=== PATIENT | female | born 1985 ===

== ENCOUNTER → 2017-08-17 | Outpatient (CLI) | payer OTHER ==
[~2017-08-17] MED LIST: ALLEGRA ALLERG180 MG PO; GILTUSS TR TAB1 EACH PO; LEVAQUIN500 MG PO; PIROXICAM
== END | disposition home or self-care (01) ==
LOC: PPHC 09:09
DX: R21 Rash and other nonspecific skin eruption (principal)

== ENCOUNTER 2023-06-09 15:30 | Outpatient (CLI) | payer OTHER | END 2023-06-09 16:52 | disposition home or self-care (01) | LOC: NST 15:30 | PROVIDERS: ATTEND Obstetrics & Gynecology Gynecology | DX: Z34.83 Encounter for supervision of other normal pregnancy, third trimester (principal) ==

== ENCOUNTER 2023-06-14 12:45 | Inpatient (IN) | payer OTHER ==
[~2023-06-14] VITALS: Ht 157.5 cm; Wt 69.9 kg
[2023-06-20] MEDS ORDERED: MAGNESIUM SULFATE IN WATER 0.04 GM/ML IV.SOLN IV ONE (18:02)
[2023-06-20 19:03] LABS: HEMATOCRIT 38.1 % (36.0-45.00); HEMOGLOBIN 13.2 g/dL (12.0-15.00); MEAN CELL VOLUME 89.4 fL (80.00-100.00); MEAN CORPUSCULAR HGB CONC 34.7 g/dl (32.0-36.0); PLATELET COUNT 281 K/uL (150-450); RED BLOOD COUNT 4.26 M/uL (4.00-6.00); RED CELL DISTRIBUTION WIDTH 13.6 % (11.5-14.5)
[2023-06-20 19:06] LABS: PH,URINE 5.5 (5.0-8.0); URINE APPEARANCE Clear; URINE BILIRRUBIN Negative (NEGATIVE); URINE BLOOD Negative; URINE COLOR Yellow; URINE GLUCOSE Negative (NEGATIVE); URINE LEUKOCYTE Negative; URINE NITRATE Negative; URINE PROTEIN Negative (NEGATIVE); URINE UROBILINOGEN 0.2 E.U./dl
[2023-06-20 19:07] LABS: URINE BACTERIA 844.1 uL (0.0-1933); URINE EPITHELIAL CELLS 8.3 uL (0.0-38.8); URINE RBC 6.8 uL (0.0-20.8); URINE WBC 10.9 uL (0.0-23.2)
[2023-06-20] MEDS ORDERED: MAGNESIUM SULFATE IN WATER 500 ML IV SCH (19:15)
[2023-06-20] MEDS ORDERED: ACETAMINOPHEN 500 MG GEL..CAP PO PRN (19:15)
[2023-06-20 19:33] LABS: ALBUMIN 2.8 gm/dL (3.4-5.0); BILIRUBIN TOTAL 0.28 mg/dL (0.3-1.2); CALCIUM 8.8 mg/dL (8.5-10.1); CREATININE SERUM 0.63 mg/dL (0.55-1.02); GFR 105.2; GLOBULINA 3.3 G/DL (2.4-3.5); POTASSIUM 3.75 mEq/L (3.5-5.1); TOTAL PROTEIN 6.1 gm/dL (6.4-8.2)
[2023-06-20 19:49] LABS: INR < 0.93; PARTIAL THROMBOPLASTIN TIME 24.5 SECONDS (22.0-34.0); PROTHROMBIN TIME 9.7 SECONDS (9.0-11.5)
[2023-06-20] MEDS ORDERED: ACYCLOVIR 400 MG TABLET PO SCH (21:00)
[2023-06-20] MEDS ORDERED: FAMOTIDINE/PF 20 MG/2 ML VIAL IV SCH (21:00)
[2023-06-21] MEDS ORDERED: OXYTOCIN 500 ML IV ONE (11:00)
[2023-06-21] MEDS ORDERED: OXYTOCIN 10 UNITS/ML VIAL ONE (11:02)
[2023-06-21] MEDS ORDERED: MISOPROSTOL 25 MCG TABLET VAG ONE ×2 (15:00)
[2023-06-22] MEDS ORDERED: OXYTOCIN 500 ML IV ONE (05:45)
[2023-06-22] MEDS ORDERED: OXYTOCIN 1,000 ML IV ONE ×2 (05:45→14:30)
[2023-06-22] MEDS ORDERED: MORPHINE SULFATE 4 MG/ML VIAL IV STA (08:27)
[2023-06-22] MEDS ORDERED: PRENATABS RX T1 EACH PO (10:29)
[2023-06-22] MEDS ORDERED: CHLORHEXIDINE GLUCONATE 120 ML BOTTLE TOP ONE (13:48)
[2023-06-22] MEDS ORDERED: DOCUSATE SODIUM 100MG CAP PO SCH (14:02)
[2023-06-22] MEDS ORDERED: CHLORHEXIDINE GLUCONATE 120 ML BOTTLE TOP SCH (14:15)
[2023-06-22] MEDS ORDERED: ERYTHROMYCIN BASE 1 GM TUBE OP SCH (14:15)
[2023-06-22] MEDS ORDERED: LIDOCAINE HCL 1% 200MG/20ML VIAL IJ SCH (14:15)
[2023-06-22] MEDS ORDERED: IBUprofen 400 MG TABLET PO PRN (14:15)
[2023-06-23 07:04] LABS: HEMATOCRIT 34.9 % (36.0-45.00); MEAN CELL VOLUME 92.3 fL (80.00-100.00); MEAN CORPUSCULAR HEMOGLOBIN 31.8 pg (27.00-32.0); MEAN CORPUSCULAR HGB CONC 34.5 g/dl (32.0-36.0); PLATELET COUNT 254 K/uL (150-450); RED BLOOD COUNT 3.78 M/uL (4.00-6.00); RED CELL DISTRIBUTION WIDTH 13.5 % (11.5-14.5)
[2023-06-23] MEDS ORDERED: PNV,CALCIUM 72/IRON/FOLIC ACID 1 TAB TABLET PO SCH (09:00)
== END 2023-06-24 17:21 | disposition home or self-care (01) | DRG 807 ==
LOC: LDR 06-20 17:52 → OB/GYN 06-22 17:18
PROVIDERS: ADMIT Obstetrics & Gynecology Gynecology; ATTEND Obstetrics & Gynecology Gynecology
PROC: 3E033VJ Introduction of Other Hormone into Peripheral Vein, Percutaneous Approach (ICD-10-PCS; 2023-06-21)
PROC: 3E0P7VZ Introduction of Hormone into Female Reproductive, Via Natural or Artificial Opening (ICD-10-PCS; 2023-06-21)
PROC: 4A1HXCZ Monitoring of Products of Conception, Cardiac Rate, External Approach (ICD-10-PCS; 2023-06-21)
PROC: 10E0XZZ Delivery of Products of Conception, External Approach (ICD-10-PCS; principal; 2023-06-22)
PROC: 0HQ9XZZ Repair Perineum Skin, External Approach (ICD-10-PCS; 2023-06-22)
DX: O70.0 First degree perineal laceration during delivery (principal); Z37.0 Single live birth; O13.4 Gestational [pregnancy-induced] hypertension without significant proteinuria, complicating childbirth; O36.5930 Maternal care for other known or suspected poor fetal growth, third trimester, not applicable or unspecified; Z3A.38 38 weeks gestation of pregnancy; Z20.822 Contact with and (suspected) exposure to COVID-19

== ENCOUNTER 2023-06-14 14:37 | Outpatient (CLI) | payer OTHER | END 2023-06-14 17:55 | disposition home or self-care (01) | LOC: NST 14:37 | PROVIDERS: ATTEND Obstetrics & Gynecology Gynecology | DX: Z34.83 Encounter for supervision of other normal pregnancy, third trimester (principal) ==

== ENCOUNTER 2023-06-17 10:42 | Outpatient (CLI) | payer OTHER | END 2023-06-17 15:19 | disposition home or self-care (01) | LOC: NST 10:42 | PROVIDERS: ATTEND Obstetrics & Gynecology Gynecology | DX: Z34.83 Encounter for supervision of other normal pregnancy, third trimester (principal) ==

== ENCOUNTER → 2023-06-19 | Outpatient (CLI) | payer OTHER | END | disposition home or self-care (01) | LOC: NST 12:07 | PROVIDERS: ATTEND Obstetrics & Gynecology | DX: Z34.83 Encounter for supervision of other normal pregnancy, third trimester (principal) ==